=== PATIENT | female | born 1960 | race Caucasian/White ===

== ENCOUNTER 2019-06-05 17:18 | Emergency (ER) | payer SELFPAY ==
[~2019-06-05] VITALS: Ht 149.9 cm; Wt 73.9 kg
[2019-06-05 17:22] VITALS: BP 168/104
--- NOTE | 2019-06-05 17:28 | NUR ---
notified ERMD of pt c/o and EKG result from outpatient
--- NOTE | 2019-06-05 17:46 | NUR ---
Pt current BP 173/102. Pt noncompliant with medication per pt d/t not being able to be seen in a clinic
--- NOTE | 2019-06-05 17:46 | NUR ---
58 y/o F presents to ER for chest pain. Pt denies any chest pain at this time. Per pt she has been having chest pain since Saturday night, constant pain. Pt went to a clinic today for follow up and was referred to come to ER. Pt denies SOB, dizziness or heart palpitations. Pt placed on compliance monitor. Waiting for ERMD to evaluate pt. Allergies: NKA Med hx: none
--- NOTE | 2019-06-05 17:48 | NUR ---
EKG being performed at bedside
[2019-06-05 18:01] LABS: BASOPHILS # (AUTO) 0.1 K/uL (0.00-0.22); BASOPHILS % (AUTO) 0.7 % (0.0-2.0); EOSINOPHILS % (AUTO) 0.6 % (0.0-4.0); LYMPHOCYTES # (AUTO) 2.8 K/uL (2.5-16.5); LYMPHOCYTES % (AUTO) 32.8 % (20.5-51.1); MEAN CORPUSCULAR HEMOGLOBIN 29 pg (27-31); MEAN CORPUSCULAR HGB CONC 33 g/dL (33-37); MEAN CORPUSCULAR VOLUME 86.7 fL (80-94); MONOCYTES # (AUTO) 0.7 K/uL (0.8-1.0); MONOCYTES % (AUTO) 8.5 % (1.7-9.3); NEUTROPHILS % (AUTO) 57.4 % (42.2-75.2); PLATELET COUNT (AUTO) 249 K/uL (140-450); RED BLOOD CELL COUNT(AUTO) 5.18 MIL/uL (4.20-5.40); RED CELL DISTRIBUTION WIDTH 14.1 % (11.6-13.7); WHITE BLOOD COUNT (AUTO) 8.7 K/uL (4.8-10.8)
--- NOTE | 2019-06-05 18:03 | NUR ---
Xray at bedside
--- NOTE | 2019-06-05 18:18 | NUR ---
ERMD EVALUATING PT AT BEDSIDE
[2019-06-05 18:20] LABS: PROTHROMBIN TIME 10.6 secs (10.8-13.4)
[2019-06-05 18:24] LABS: ALBUMIN 4.2 g/dL (3.4-5.0); ANION GAP 14.6 (8-16); CARBON DIOXIDE 30.1 mmol/L (21-32); CREATININE 0.7 mg/dL (0.6-1.3); POTASSIUM 3.7 mmol/L (3.5-5.1); TOTAL BILIRUBIN 0.5 mg/dL (0.0-1.0)
[2019-06-05] MEDS ORDERED: ASPIRIN 325 MG TAB PO ONE (18:35)
--- NOTE | 2019-06-05 18:59 | NUR ---
Per pt she wants to leave AMA. MD Gurrola made aware. MD Gurrola at bedside educating pt.
--- NOTE | 2019-06-05 19:16 | NUR ---
RECIVED REPORT FROM BUZZ JACKSON. CONTINUATION OF CARE.
--- NOTE | 2019-06-05 19:30 | NUR ---
Patient does not wish to proceed with medical care recommended by . Patient given information related to possible complications, up to and including , which could occur as a result of leaving hospital at this time. Patient verbalizes understanding of risks involved leaving against medical advice. Patient has signed AMA form.
[2019-06-05 19:39] VITALS: BP 152/98
== END 2019-06-05 19:30 | disposition left against medical advice (07) ==
LOC: MED 17:28
DX: I21.9 Acute myocardial infarction, unspecified (principal); R07.9 Chest pain, unspecified; E11.9 Type 2 diabetes mellitus without complications; I10 Essential (primary) hypertension
CPT/HCPCS: 36415; 71045; 80053; 84484; 85025; 85610; 85730; 99285